=== PATIENT | female | born 1945 | race Caucasian/White ===

== ENCOUNTER → 2017-04-10 | Outpatient (CLI) | payer MEDICARE | END | disposition home or self-care (01) | LOC: C.LABPBG 09:50 | PROVIDERS: ATTEND Urology | DX: N28.1 Cyst of kidney, acquired (principal) ==

== ENCOUNTER 2018-02-09 07:15 | Emergency (ER) | payer MEDICARE ==
[~2018-02-09] VITALS: Ht 162.6 cm; Wt 64.1 kg
[2018-02-09 07:17] VITALS: TEMP 36.8; Ht 162.6 cm; Wt 64.1 kg
[2018-02-09] MEDS ORDERED: ONDANSETRON INJ 2 MG/ML 2 ML VIAL IV STA ×2 (07:37)
--- NOTE | 2018-02-09 07:41 | EMERGENCY ROOM VISIT NOTE ---
History Report prepared by Joanne: Molina Collado Under the Supervision of: Dr. Cristobal Weston M.D. First contact with patient: 07:28 Chief Complaint: HYPERTENSION Stated Complaint: BLOOD PRESSURE HIGH,VOMITING,DOES NOT FEEL RIGHT History of Present Illness The patient is a 72 year old white female with a past medical history of hypertension and hematuria who presents to the Emergency Room with complaints of constant nausea that she has been experiencing for the past 3 days. The patient states that she has had an "upset" stomach and did vomit twice this morning. The patient had a bowel movement yesterday that was "runny" this is unusual for her. She admits that she has been under some increased stress lately as her daughter is in a custody [place] for her grandson. She visited with her primary care office this week and was started on a new medication for her anxiety. The patient continued to complain that she has noticed that her blood pressure has been elevated. Source of History: patient Onset: 3 days Position: abdomen Quality: other (Nausea) Timing: constant Associated Symptoms: + vomiting, + diarrhea Review of Systems See HPI for pertinent positives and negatives. A total of ten systems were reviewed and were otherwise negative. Past Medical & Surgical Medical Problems: (1) HTN (hypertension) HTN (hypertension) Family History Heart disease Hypertension Social History Smoking Status: Never Smoker Marital Status: Housing Status: lives with significant other Occupation Status: retired Current/Historical Medications Scheduled PRN Ondansetron Hcl (Zofran), 4 MG PO Q8H PRN for Nausea Physical Exam Vital Signs Date Time Temp Pulse Resp B/P (MAP) Pulse Ox O2 Delivery O2 Flow Rate FiO2 02/09/18 08:26 61 24 152/87 94 Room Air 02/09/18 08:04 57 02/09/18 07:17 36.8 63 18 152/86 94 Room Air Physical Exam GENERAL: Awake, alert, well-appearing, NAD HENT: Normocephalic, atraumatic. EYES: Normal conjunctiva. Sclera non-icteric. Irregular pupils. No anisocoria. NECK: Supple. No nuchal rigidity. FROM. RESPIRATORY: CTAB, no rhonchi, wheezing, crackles CARDIAC: RRR, no MRG ABDOMEN: Soft, NTND, BS+ MSK: No chest wall TTP, no LE edema NEURO: GCS 15, CN 2-12 intact, moves all 4s on command SKIN: No rash or jaundice noted. Medical Decision & Procedures Laboratory Results 02/09/18 07:48 Red Blood Count 5.15, Mean Corpuscular Volume 90.1, Mean Corpuscular Hemoglobin 30.1, Mean Corpuscular Hemoglobin Concent 33.4, Mean Platelet Volume 10.8, Neutrophils (%) (Auto) 74.0, Lymphocytes (%) (Auto) 16.5, Monocytes (%) (Auto) 8.3, Eosinophils (%) (Auto) 0.6, Basophils (%) (Auto) 0.2, Neutrophils # (Auto) 6.12, Lymphocytes # (Auto) 1.37, Monocytes # (Auto) 0.69, Eosinophils # (Auto) 0.05, Basophils # (Auto) 0.02 02/09/18 07:48 Test 02/09/18 07:48 White Blood Count 8.28 K/uL (4.8-10.8) Red Blood Count 5.15 M/uL (4.2-5.4) Hemoglobin 15.5 g/dL (12.0-16.0) Hematocrit 46.4 % (37-47) Mean Corpuscular Volume 90.1 fL (80-100) Mean Corpuscular Hemoglobin 30.1 pg (25-34) Mean Corpuscular Hemoglobin Concent 33.4 g/dl (32-36) Platelet Count 246 K/uL (130-400) Mean Platelet Volume 10.8 fL (7.4-10.4) Neutrophils (%) (Auto) 74.0 % Lymphocytes (%) (Auto) 16.5 % Monocytes (%) (Auto) 8.3 % Eosinophils (%) (Auto) 0.6 % Basophils (%) (Auto) 0.2 % Neutrophils # (Auto) 6.12 K/uL (1.4-6.5) Lymphocytes # (Auto) 1.37 K/uL (1.2-3.4) Monocytes # (Auto) 0.69 K/uL (0.11-0.59) Eosinophils # (Auto) 0.05 K/uL (0-0.5) Basophils # (Auto) 0.02 K/uL (0-0.2) RDW Standard Deviation 44.4 fL (36.4-46.3) RDW Coefficient of Variation 13.3 % (11.5-14.5) Immature Granulocyte % (Auto) 0.4 % Immature Granulocyte # (Auto) 0.03 K/uL (0.00-0.02) Anion Gap 5.0 mmol/L (3-11) Est Creatinine Clear Calc Drug Dose 49.2 ml/min Estimated GFR () 73.1 Estimated GFR (Non- 63.1 BUN/Creatinine Ratio 10.3 (10-20) Calcium Level 9.2 mg/dl (8.5-10.1) Magnesium Level 2.1 mg/dl (1.8-2.4) Total Bilirubin 0.7 mg/dl (0.2-1) Direct Bilirubin 0.2 mg/dl (0-0.2) Aspartate Amino Transf (AST/SGOT) 20 U/L (15-37) Alanine Aminotransferase (ALT/SGPT) 32 U/L (12-78) Alkaline Phosphatase 81 U/L (45-117) Troponin I < 0.015 ng/ml (0-0.045) Total Protein 7.7 gm/dl (6.4-8.2) Albumin 4.2 gm/dl (3.4-5.0) Lipase 234 U/L (73-393) Laboratory results reviewed by me Medications Administered Medications (Trade) Dose Ordered Sig/Rebecca Route Start Time Stop Time Status Last Admin Dose Admin Ondansetron HCl (Zofran Inj) 4 mg NOW STAT IV 02/09/18 07:37 02/09/18 07:39 DC 02/09/18 07:49 4 MG Dicyclomine HCl (Bentyl Cap) 10 mg NOW ONCE PO 02/09/18 07:45 02/09/18 07:46 DC 02/09/18 07:50 10 MG Famotidine (Pepcid Tab) 20 mg NOW ONCE PO 02/09/18 07:45 02/09/18 07:46 DC 02/09/18 07:50 20 MG Al Hydroxide/Mg Hydroxide (Maalox Susp) 30 ml STK-MED ONCE .ROUTE 02/09/18 08:57 02/09/18 08:58 DC 02/09/18 09:04 30 ML Lidocaine HCl (Viscous Lidocaine 2% Soln) 20 ml STK-MED ONCE .ROUTE 7/27/18 08:58 02/09/18 08:59 DC 02/09/18 09:04 20 ML ECG Per My Interpretation Indication: nausea, vomiting Rate (beats per minute): 58 Rhythm: sinus bradycardia Findings: RBBB, T-wave inversion (AvF, V3 and V4), other (Wide QRS) ED Course 0732: The patient was evaluated in room B2. A complete history and physical exam was performed. 0847: I checked on the patient at this time. She is stable. 0913: I reevaluated the patient. Discussed results and discharge instructions: She verbalized understanding and agreement. The patient is ready for discharge. Medical Decision he patient is a 72 year old white female with a past medical history of hypertension and hematuria who presents to the Emergency Room with complaints of constant nausea that she has been experiencing for the past 3 days. Nursing notes reviewed. Ancillary studies and prior records reviewed. Differential diagnosis: Etiologies such as gastroenteritis, food borne illness, infections, appendicitis , diverticulitis, inflammatory bowel disease, obstruction, GI bleed, biliary pathology, as well as others were entertained. Patient was seen and evaluated the bedside. Patient does have known history of hypertension. Patient also relates having some upset stomach but denies any pain. Patient did have some nausea with 1-2 episodes of vomiting this morning. Patient denies any recent antibiotics. No recent travel. Of note the patient has been undergoing a lot of stress as her daughter is undergoing a custody [place] for her grandson. Patient has noted some runny stools and has had decreased appetite. Patient does have a fairly benign exam. Patient did have blood work completed, EKG, troponin, chest x-ray the patient was given medications for symptom control. Patient blood work is unremarkable. EKG does show a old right bundle branch block. Patient's troponin is negative. Less likely ACS. I believe that most of her symptoms are arising from stress as this likely is causing increased colonic transit, stress, and upset stomach. Patient otherwise has stable vital signs. Patient does relate having some hypertension. The patient does have some upset stomach but does not have things like chest pains, dysarthria, numbness, tingling, or weakness. Upon reassessment the patient was feeling improved. Patient was deemed suitable for outpatient follow-up and treatment at this time. Patient was given strict follow-up, discharge, and return precautions. All questions were answered. Patient was deemed suitable for outpatient follow-up at this time. Patient agreed with the plan of care and was safely discharged home. Medication Reconcilliation Current Medication List: was personally reviewed by me Blood Pressure Screening Patient's blood pressure: Elevated blood pressure Blood pressure disposition: Referred to PCP Impression Primary Impression: Dyspepsia Additional Impressions: HTN (hypertension) Emotional stress Scribe Attestation The scribe's documentation has been prepared under my direction and personally reviewed by me in its entirety. I confirm that the note above accurately reflects all work, treatment, procedures, and medical decision making performed by me. Departure Information Dispostion Home / Self-Care Prescriptions Ondansetron Hcl (ZOFRAN) 4 Mg Tab 4 MG PO Q8H Y for Nausea, #12 TAB Prov: Cristobal Weston M.D. 02/09/18 Referrals Jeannie Gibson PAta (PCP) Patient Instructions ED Nausea Vomiting, Hypertension [place], [facility] Additional Instructions Please return to the emergency department if you have worsening or recurrent symptoms not amenable to at-home treatment. Please call for a follow-up appointment with her primary care physician. Please take your medications as prescribed. If you have other concerns and/or complaints please feel free to also call your primary care physician's office or return the ED for further evaluation, management, and treatment. You may take 600 mg Ibuprofen every 6 hours as needed for pain/fever with food unless told by your physician not to take NSAIDs. You may take tylenol 650 mg every 6 hours as needed for pain/fever unless told by your physician to not take it or have liver problems. You may take motrin and tylenol separately or at the same time. Take your medications as prescribed. To help with your reflux type symptoms please consider smaller more frequent meals. Please do not lay down after eating. Consider avoiding spicy, citrus, peppermint, chocolate. Consider taking a PPI like Nexium 20 mg daily or an antihistamine like Pepcid 20 mg twice daily. Sitting upright may help improve your symptoms also. Do not lay down after eating or drinking. You may also try things like Tums or Maalox. You have been examined and treated today on an emergency basis only. This is not a substitute for, or an effort to provide, complete comprehensive medical care. It is impossible to recognize and treat all injuries or illnesses in a single emergency department visit. It is therefore important that you follow up closely with [facility], your PCP, and/or your specialist(s). Call as soon as possible for an appointment. Thank you for your time and consideration. I look forward to speaking with you again soon. Please don't hesitate to call us if you have any questions. Problem Qualifiers Additional Impressions: HTN (hypertension) Hypertension type: unspecified Qualified Codes: I10 - Essential (primary) hypertension
[2018-02-09] MEDS ORDERED: DICYCLOMINE HCL 10 MG CAP PO ONE (07:45)
[2018-02-09] MEDS ORDERED: FAMOTIDINE 20 MG TAB PO ONE (07:45)
[2018-02-09 07:59] LABS: BASO % 0.2 %; BASO ABS # 0.02 K/uL (0-0.2); EOS % 0.6 %; EOS ABS # 0.05 K/uL (0-0.5); HEMATOCRIT 46.4 % (37-47); HEMOGLOBIN 15.5 g/dL (12.0-16.0); IG# 0.03 K/uL (0.00-0.02); LYMPH % 16.5 %; LYMPH ABS # 1.37 K/uL (1.2-3.4); MEAN CELL VOLUME 90.1 fL (80-100); MEAN CORPUSCULAR HEMOGLOBIN 30.1 pg (25-34); MEAN CORPUSCULAR HGB CONC 33.4 g/dl (32-36); MEAN PLATELET VOLUME 10.8 fL (7.4-10.4); MONO % 8.3 %; MONO ABS # 0.69 K/uL (0.11-0.59); NEUT ABS # 6.12 K/uL (1.4-6.5); PLATELET COUNT 246 K/uL (130-400); RED CELL DISTRIBUTION WIDTH CV 13.3 % (11.5-14.5); RED CELL DISTRIBUTION WIDTH SD 44.4 fL (36.4-46.3); WHITE BLOOD COUNT 8.28 K/uL (4.8-10.8)
[2018-02-09 08:20] LABS: ALBUMIN 4.2 gm/dl (3.4-5.0); ALKALINE PHOSPHATASE 81 U/L (45-117); ALT/SGPT 32 U/L (12-78); AST/SGOT 20 U/L (15-37); BLOOD UREA NITROGEN 9 mg/dl (7-18); CALCIUM 9.2 mg/dl (8.5-10.1); CARBON DIOXIDE 27 mmol/L (21-32); CREATININE 0.92 mg/dl (0.60-1.20); GLUCOSE 122 mg/dl (70-99); LIPASE 234 U/L (73-393); POTASSIUM 4.1 mmol/L (3.5-5.1); SODIUM 134 mmol/L (136-145); TOTAL PROTEIN 7.7 gm/dl (6.4-8.2)
[2018-02-09] MEDS ORDERED: GI COCKTAIL PO STA (08:49)
[2018-02-09] MEDS ORDERED: ALUMINUM/MAGNESIUM SUSP 30 ML UDC ONE (08:57)
[2018-02-09] MEDS ORDERED: LIDOCAINE HCL 2% VISC SOLN 20 ML UDC ONE (08:58)
[2018-02-09] MEDS ORDERED: ONDA4TAB46 PO (09:11)
[2018-02-09 09:24] VITALS: BP 151/88; PULSE 61; O2SAT 95
== END 2018-02-09 09:25 | disposition home or self-care (01) ==
LOC: C.EDB 07:17
DX: R06.00 Dyspnea, unspecified (principal); I10 Essential (primary) hypertension; R45.7 State of emotional shock and stress, unspecified; R94.31 Abnormal electrocardiogram [ECG] [EKG]; Z82.49 Family history of ischemic heart disease and other diseases of the circulatory system